=== PATIENT | male | born 1950 | race Caucasian/White ===

== ENCOUNTER → 2016-12-10 | Outpatient (CLI) | payer OTHER ==
[~2016-12-10] MED LIST: CLARITIN10 M3 PO; FENOFIBRATE160 MG PO; FLOMAX0.4 M1 PO; FOLIC ACID PO; HYDROXYUREA500 M1 PO; IMDUR-ER30 M2 PO; LISINOPRIL20 MG PO; LO-DOSE ASPIRIN81 M1 PO; METOPROLOL SUCC50 MG PO; MICROZIDE12.5 M1 PO; MULTI VITAMIN1 EACH PO; VITAMIN C500 M1 PO; ZOCOR20 MG PO
--- NOTE | ~2016-12-10 | CR214 ---
[facility] A Service of [facility] & [facility] RADIOLOGY TEXT RESULTS PATIENT: CASSANDRA APODACA LOCATION: [facility] : 54 UNIT #: [id number] AGE: [address]: Cassandra He MD SEX: M ORDER DR: [id number] [facility] [address] [place], [place] [address] [id number] O MR#: [id number] Acc #: [id number] NAME: CASSANDRA APODACA : 1950 SEX: M STUDY DATE/TIME: 12/10/2016 10:49 UNIT: [facility] ROOM: STUDY DESCRIPTION: CR SItz Marker Study Day 0 Attending Physician: Cassandra He M.D. Referring Physician: Cassandra He M.D. Ordering Physician: Cassandra He M.D. Primary Care Physician: Jennifer Paul M.D. MEDICAL IMAGING REPORT This report is preliminary unless electronic signature is present EXAM Sitz marker study day 0 HISTORY Constipation. FINDINGS A fitting room supervisor film shows normal bowel gas pattern. The bones are normal. The second films shows that a capsule has been ingested and the sitz markers are visible in the stomach. IMPRESSION The bowel gas pattern is normal. The sitz marker capsule is visible in the stomach after ingestion of the capsule. Dictated by... Philipp Combs M.D. THIS IS AN ELECTRONICALLY VERIFIED REPORT Philipp Combs M.D. at 12/11/2016 6:24 AM TANIA/daiana TD: 12/11/2016 00:03 JOB #: [id number] MEDICAL IMAGING REPORT Page 1 of 1 COPY
== END | disposition home or self-care (01) ==
LOC: CRAD 10:32
DX: K59.00 Constipation, unspecified (principal)
CPT/HCPCS: 74241

== ENCOUNTER → 2016-12-13 | Outpatient (CLI) | payer OTHER ==
--- NOTE | ~2016-12-13 | CR7 ---
[facility] A Service of [facility] & [facility] RADIOLOGY TEXT RESULTS PATIENT: CASSANDRA APODACA LOCATION: [facility] : 54 UNIT #: [id number] AGE: [address]: Cassandra He MD SEX: M ORDER DR: [id number] [facility] [address] [place], [place] [address] [id number] O MR#: [id number] Acc #: [id number] NAME: CASSANDRA APODACA. : 1950 SEX: M STUDY DATE/TIME: 12/13/2016 11:10 UNIT: [facility] ROOM: STUDY DESCRIPTION: CR Abdomen Single AP View Attending Physician: Cassandra He M.D. Referring Physician: Cassandra He M.D. Ordering Physician: Cassandra He M.D. Primary Care Physician: Jennifer Paul M.D. MEDICAL IMAGING REPORT This report is preliminary unless electronic signature is present EXAM Abdomen, 12/13/2016. HISTORY Day 3 sitz franki colon transit study. TECHNIQUE AP images of the abdomen and pelvis were obtained on day 3 of sitz franki colon transit study. FINDINGS 21 of 24 colon transit markers remain present. These are positioned within the descending, sigmoid and rectosigmoid colon. Day 5 study is pending. Of note, herniorrhaphy clips superimposed over both inguinal regions mimic colon transit markers. Note is also made of marked splenomegaly. IMPRESSION 1. 21 of 24 colon transit markers in the left hemicolon as noted above. 2. Splenomegaly. Dictated by... Cl Rushing M.D. THIS IS AN ELECTRONICALLY VERIFIED REPORT Cl Rushing M.D. at 12/14/2016 9:47 AM DANYELL/ranjith TD: 12/14/2016 06:09 JOB #: [id number] MEDICAL IMAGING REPORT Page 1 of 1 COPY
== END | disposition home or self-care (01) ==
LOC: CRAD 10:41
DX: K59.00 Constipation, unspecified (principal); R16.1 Splenomegaly, not elsewhere classified
CPT/HCPCS: 74000

== ENCOUNTER → 2016-12-15 | Outpatient (CLI) | payer OTHER ==
--- NOTE | ~2016-12-15 | CR7 ---
[facility] A Service of [facility] RADIOLOGY TEXT RESULTS PATIENT: CASSANDRA APODACA LOCATION: [facility] : 54 UNIT #: [id number] AGE: [address]: Cassandra He MD SEX: M ORDER DR: [id number] [facility] [address] [place], [place] [address] [id number] O MR#: [id number] Acc #: [id number] NAME: CASSANDRA APODACA : 1950 SEX: M STUDY DATE/TIME: 12/15/2016 11:10 UNIT: [facility] ROOM: STUDY DESCRIPTION: CR Abdomen Single AP View Attending Physician: Cassandra He M.D. Referring Physician: Cassandra He M.D. Ordering Physician: Cassandra He M.D. Primary Care Physician: Jennifer Paul M.D. MEDICAL IMAGING REPORT This report is preliminary unless electronic signature is present EXAM KUB for sitz marker study day five 12/15/2016 HISTORY Constipation, painful bowel movements. Hemorrhoids. Symptoms began 2 years ago. COMPARISON KUB for cyst marker study, day 3, 12/13/2016. Day 0 KUB sitz marker study 12/10/2016. FINDINGS No retained sitz markers are seen. Features of ventral hernia repair in the pelvis have a similar appearance to the prior examination. No abnormal small bowel dilation. Mild stool burden in the hepatic flexure and transverse colonic segments. Osseous structures within normal limits. IMPRESSION No residual sitz markers on day five KUB sitz marker study. Dictated by... Alena Christensen M.D. THIS IS AN ELECTRONICALLY VERIFIED REPORT Alena Christensen M.D. at 12/16/2016 12:27 PM LLRamez/janene TD: 12/15/2016 18:17 JOB #: [id number] MEDICAL IMAGING REPORT [facility] A Service [facility] RADIOLOGY TEXT RESULTS PATIENT: CASSANDRA APODACA LOCATION: [facility] : 54 UNIT #: [id number] AGE: [address]: Cassandra He MD SEX: M ORDER DR: Page 1 of 1 COPY
== END | disposition home or self-care (01) ==
LOC: CRAD 10:35
DX: K59.00 Constipation, unspecified (principal)
CPT/HCPCS: 74000